=== PATIENT | male | born 1940 | race African-American/Black ===

== ENCOUNTER 2021-06-04 07:47 | Outpatient (CLI) | payer MEDICARE, MEDICAID | END 2021-06-04 07:48 | disposition home or self-care (01) | LOC: BICULT 07:47 | PROVIDERS: ATTEND Family Medicine | DX: Z12.2 Encounter for screening for malignant neoplasm of respiratory organs (principal); F17.210 Nicotine dependence, cigarettes, uncomplicated; Z13.6 Encounter for screening for cardiovascular disorders | CPT/HCPCS: 71271; 76775 ==

== ENCOUNTER 2022-03-21 11:00 | Outpatient (CLI) | payer MEDICARE, MEDICAID | END 2022-03-21 11:01 | disposition home or self-care (01) | LOC: PET 11:00 | PROVIDERS: ATTEND Psychiatry & Neurology Neurology | DX: G20 Parkinson's disease (principal); R41.3 Other amnesia; F03.91 Unspecified dementia, unspecified severity, with behavioral disturbance | CPT/HCPCS: 78803; A9552 ==

== ENCOUNTER 2022-10-22 13:06 | Observation (INO) | payer MEDICARE, MEDICAID ==
[~2022-10-22 13:06] MED LIST: Iopamidol 370 76% 100 ML VIAL ONE
[2022-10-22 14:23] LABS: #Basophils 0.1 thou/uL (0.0-0.2); #Eosinphils 0.2 thou/uL (0.0-0.7); #Lymphocytes 1.9 thou/uL (1.20-3.40); #Monocytes 0.5 thou/uL (0.11-0.59); #Neutrophils 2.4 thou/uL (1.40-6.50); %Basophils 1.4 % (0.0-1.0); %Eosinophils 4.5 % (0.0-10.0); %Lymphocytes 37.4 % (21.0-51.0); %Monocytes 9.1 % (0.0-10.0); %Neutrophils 47.6 % (42.0-75.0); Hemoglobin 13.7 g/dL (14.0-18.0); Mean Corpuscular HGB CONC 31.6 g/dL (32.0-36.0); Mean Corpuscular Hemoglobin 30.9 pg (27.0-31.0); Mean Corpuscular Volume 97.9 fl (78.0-98.0); Mean Platelet Volume 8.9 fL (7.4-10.4); Platelet Count 208 10x3/uL (130-400); RBC Distribution Width 12.2 % (11.5-14.5); Red Blood Cell (RBC) Count 4.43 mill/uL (4.70-6.10); White Blood Cell (WBC) Count 5.1 10x3/uL (4.8-10.8)
[2022-10-22] MEDS ORDERED: Aspirin Chewable 81 MG TAB ONE (14:43)
[2022-10-22] MEDS ORDERED: Ondansetron PF 4 MG/2 ML Vial IVP PRN (14:53)
[2022-10-22] MEDS ORDERED: Ondansetron ODT 4 MG TAB PO PRN (14:53)
[2022-10-22 16:09] LABS: ALT (SGPT) 11 U/L (8-55); AST (SGOT) 17 U/L (5-34); Alkaline Phosphatase 89 U/L (40-110); Anion Gap 11 mmol/L (10-20); BUN (Urea Nitrogen) 13 mg/dL (8.4-25.7); Bilirubin, Total 0.7 mg/dL (0.2-1.2); Calc. Creatinine Clearance 0 mL/min (70-130); Calcium 9.7 mg/dL (7.8-10.44); Carbon Dioxide 26 mmol/L (23-31); Chloride 107 mmol/L (98-107); Estimated GFR 92; Globulin 2.7 g/dL (2.4-3.5); Glucose 91 mg/dL (83-110); Potassium 4.4 mmol/L (3.5-5.1); Protein, Total 6.7 g/dL (5.8-8.1); Sodium 140 mmol/L (136-145)
[2022-10-22 18:00] VITALS: BMI 17.9
[2022-10-22] MEDS: Atorvastatin Calcium 40 MG TAB PO SCH (21:17)
[2022-10-23 05:09] LABS: #Eosinphils 0.3 thou/uL (0.0-0.7); #Lymphocytes 2.7 thou/uL (1.20-3.40); #Monocytes 0.5 thou/uL (0.11-0.59); #Neutrophils 2.2 thou/uL (1.40-6.50); %Basophils 0.8 % (0.0-1.0); %Eosinophils 5.6 % (0.0-10.0); %Lymphocytes 46.4 % (21.0-51.0); %Monocytes 8.5 % (0.0-10.0); %Neutrophils 38.7 % (42.0-75.0); Hemoglobin 13.6 g/dL (14.0-18.0); Mean Corpuscular HGB CONC 33.7 g/dL (32.0-36.0); Mean Corpuscular Hemoglobin 32.6 pg (27.0-31.0); Mean Corpuscular Volume 96.8 fl (78.0-98.0); Mean Platelet Volume 8.8 fL (7.4-10.4); Platelet Count 195 10x3/uL (130-400); RBC Distribution Width 11.9 % (11.5-14.5); Red Blood Cell (RBC) Count 4.18 mill/uL (4.70-6.10); White Blood Cell (WBC) Count 5.7 10x3/uL (4.8-10.8)
[2022-10-23] MEDS: Aspirin 81 mg Enteric Coated Tablet PO SCH (08:06)
[2022-10-23 09:43] LABS: Anion Gap 12 mmol/L (10-20); BUN (Urea Nitrogen) 15 mg/dL (8.4-25.7); Calc. Creatinine Clearance 61 mL/min (70-130); Calcium 9.4 mg/dL (7.8-10.44); Carbon Dioxide 25 mmol/L (23-31); Cardiac Risk 3.5 (Less than 4.5); Chloride 106 mmol/L (98-107); Cholesterol 159 mg/dl (< 200 Desired); Estimated GFR 89; Glucose 75 mg/dL (83-110); HDL Cholesterol 45 mg/dL (>60 Neg Risk); LDL Cholesterol, Calculated 95 mg/dL; Potassium 4.7 mmol/L (3.5-5.1); Sodium 138 mmol/L (136-145); Triglycerides 95 mg/dL (Less than 150)
[2022-10-23] MEDS: Carbidopa/Levodopa 25-100 mg Tablet PO SCH (20:52)
[2022-10-23] MEDS: Atorvastatin Calcium 40 MG TAB PO SCH (20:52)
[2022-10-24 06:21] LABS: #Basophils 0.1 thou/uL (0.0-0.2); #Eosinphils 0.2 thou/uL (0.0-0.7); #Lymphocytes 2.3 thou/uL (1.20-3.40); #Monocytes 0.4 thou/uL (0.11-0.59); #Neutrophils 2.2 thou/uL (1.40-6.50); %Basophils 0.9 % (0.0-1.0); %Eosinophils 4.5 % (0.0-10.0); %Lymphocytes 44.6 % (21.0-51.0); %Monocytes 7.4 % (0.0-10.0); %Neutrophils 42.5 % (42.0-75.0); Hemoglobin 13.1 g/dL (14.0-18.0); Mean Corpuscular HGB CONC 33.8 g/dL (32.0-36.0); Mean Corpuscular Hemoglobin 32.4 pg (27.0-31.0); Mean Corpuscular Volume 95.9 fl (78.0-98.0); Mean Platelet Volume 8.8 fL (7.4-10.4); Platelet Count 210 10x3/uL (130-400); RBC Distribution Width 11.8 % (11.5-14.5); Red Blood Cell (RBC) Count 4.04 mill/uL (4.70-6.10); White Blood Cell (WBC) Count 5.2 10x3/uL (4.8-10.8)
[2022-10-24 06:41] LABS: Anion Gap 11 mmol/L (10-20); BUN (Urea Nitrogen) 19 mg/dL (8.4-25.7); Calc. Creatinine Clearance 67 mL/min (70-130); Calcium 9.4 mg/dL (7.8-10.44); Carbon Dioxide 25 mmol/L (23-31); Chloride 105 mmol/L (98-107); Estimated GFR 91; Glucose 95 mg/dL (83-110); Potassium 4.1 mmol/L (3.5-5.1); Sodium 137 mmol/L (136-145)
[2022-10-24] MEDS: Carbidopa/Levodopa 25-100 mg Tablet PO SCH (08:23)
[2022-10-24] MEDS: Aspirin 81 mg Enteric Coated Tablet PO SCH (08:23)
[2022-10-24] MEDS ORDERED: Donepezil HCl 10 MG TAB PO SCH (09:00)
[2022-10-24 12:00] VITALS: BP 108/62; TEMP 97.7
== END 2022-10-24 15:08 | disposition home or self-care (01) ==
LOC: ERS 13:06 → ERHOLD 15:05 → NEURO 17:25
PROVIDERS: ADMIT Hospitalist; ATTEND Hospitalist
DX: R53.1 Weakness (principal); M21.331 Wrist drop, right wrist; I25.2 Old myocardial infarction; I25.10 Atherosclerotic heart disease of native coronary artery without angina pectoris; I11.0 Hypertensive heart disease with heart failure; I50.20 Unspecified systolic (congestive) heart failure; I08.3 Combined rheumatic disorders of mitral, aortic and tricuspid valves; E78.5 Hyperlipidemia, unspecified; G20 Parkinson's disease; G89.29 Other chronic pain; M54.9 Dorsalgia, unspecified; K74.60 Unspecified cirrhosis of liver; Z95.1 Presence of aortocoronary bypass graft; Z79.82 Long term (current) use of aspirin; Z79.899 Other long term (current) drug therapy; Z87.891 Personal history of nicotine dependence
CPT/HCPCS: 70450; 70496; 70498; 70551; 71045; 73080; 73100; 80048 ×2; 80053; 80061; 84484; 85025 ×3; 93005; 93306; 97112; 97530; 99285; G0378 ×4; 36415; Q9967

== ENCOUNTER 2022-10-31 15:03 | Emergency (ER) | payer MEDICARE, MEDICAID ==
[2022-10-31 16:30] LABS: #Eosinphils 0.2 thou/uL (0.0-0.7); #Lymphocytes 1.5 thou/uL (1.20-3.40); #Monocytes 0.7 thou/uL (0.11-0.59); #Neutrophils 4.7 thou/uL (1.40-6.50); %Basophils 0.6 % (0.0-1.0); %Eosinophils 2.2 % (0.0-10.0); %Lymphocytes 21.2 % (21.0-51.0); %Monocytes 9.3 % (0.0-10.0); %Neutrophils 66.7 % (42.0-75.0); Hemoglobin 13.6 g/dL (14.0-18.0); Mean Corpuscular HGB CONC 32.6 g/dL (32.0-36.0); Mean Corpuscular Hemoglobin 31.9 pg (27.0-31.0); Mean Corpuscular Volume 97.7 fl (78.0-98.0); Mean Platelet Volume 8.4 fL (7.4-10.4); Platelet Count 221 10x3/uL (130-400); RBC Distribution Width 11.9 % (11.5-14.5); Red Blood Cell (RBC) Count 4.26 mill/uL (4.70-6.10); White Blood Cell (WBC) Count 7.1 10x3/uL (4.8-10.8)
[2022-10-31 17:10] LABS: Bilirubin Negative (Negative); Blood, Urine Negative (Negative); Clarity Clear (Clear); Glucose, Urine (Dipstick) Normal (Negative); Ketone, Urine Negative (Negative); Leukocyte Negative Leu/uL (Negative); Nitrite Negative (Negative); Protein, Urine (Dipstick) Negative (Neg-Trace); Specific Gravity, Urine 1.018 (1.002-1.036)
[2022-10-31 17:59] LABS: ALT (SGPT) Less than 7 U/L (8-55); AST (SGOT) 16 U/L (5-34); Albumin 3.6 g/dL (3.4-4.8); Alkaline Phosphatase 76 U/L (40-110); Anion Gap 15 mmol/L (10-20); BUN (Urea Nitrogen) 21 mg/dL (8.4-25.7); Bilirubin, Total 0.5 mg/dL (0.2-1.2); CK (CPK) 142 U/L (30-200); Calc. Creatinine Clearance 0 mL/min (70-130); Carbon Dioxide 21 mmol/L (23-31); Chloride 110 mmol/L (98-107); Estimated GFR 90; Globulin 2.7 g/dL (2.4-3.5); Glucose 98 mg/dL (83-110); Potassium 4.3 mmol/L (3.5-5.1); Protein, Total 6.3 g/dL (5.8-8.1); Sodium 142 mmol/L (136-145)
== END 2022-10-31 21:49 ==
LOC: ERS 15:03
DX: E86.0 Dehydration (principal); E86.1 Hypovolemia; I10 Essential (primary) hypertension; I25.10 Atherosclerotic heart disease of native coronary artery without angina pectoris
CPT/HCPCS: 36415; 51701; 70450; 71045; 80053; 81003; 82550; 83605; 84443; 84484; 85025; 93005; 96360

== ENCOUNTER 2023-03-20 23:03 | Inpatient (IN) | payer MEDICARE, MEDICAID ==
[2023-03-20] MEDS ORDERED: cefTRIAXone (ROCEPHIN) 2 GM VIAL ONE (23:55)
[2023-03-21 00:02] LABS: Bacteria/HPF 3+ HPF (None Seen); Bilirubin Negative (Negative); Blood, Urine 1+ (Negative); CAUTI Indications for Culture Alt mental st,lethar; Clarity Clear (Clear); Glucose, Urine (Dipstick) Normal (Negative); Ketone, Urine Negative (Negative); Leukocyte 25 Leu/uL (Negative); Mucous/LPF Rare LPF (<2+); Nitrite Negative (Negative); Protein, Urine (Dipstick) 10 mg/dL (Neg-Trace); Specific Gravity, Urine 1.024 (1.002-1.036); Squamous Epithelial None Seen HPF (0-3)
[2023-03-21 00:03] LABS: Urine Culture Reflex No No
[2023-03-21 00:06] LABS: Amphetamine Not Detected (NotDetected); Barbiturates Screen Not Detected (NotDetected); Benzodiazepine Screen Not Detected (NotDetected); Cocaine Metabolite Screen Not Detected (NotDetected); Methadone Not Detected (NotDetected); Methamphetamine Not Detected (NotDetected); Opiate Screen Detected (NotDetected); Oxycodone Screen Not Detected (NotDetected); Phencyclidine (PCP) Not Detected (NotDetected); THC/Cannabinoid Screen Not Detected (NotDetected); Tricyclic Screen Detected (NotDetected)
[2023-03-21 00:20] LABS: #Basophils 0.1 thou/uL (0.0-0.2); #Monocytes 0.5 thou/uL (0.11-0.59); #Neutrophils 4.5 thou/uL (1.40-6.50); %Basophils 0.8 % (0.0-1.0); %Lymphocytes 19.7 % (21.0-51.0); %Monocytes 8.5 % (0.0-10.0); %Neutrophils 70.7 % (42.0-75.0); Hematocrit 35.1 % (42.0-52.0); Hemoglobin 11.5 g/dL (14.0-18.0); Mean Corpuscular HGB CONC 32.8 g/dL (32.0-36.0); Mean Corpuscular Hemoglobin 30.7 pg (27.0-31.0); Mean Corpuscular Volume 93.9 fl (78.0-98.0); Mean Platelet Volume 10.5 fL (7.4-10.4); Platelet Count 204 10x3/uL (130-400); RBC Distribution Width 13.3 % (11.5-14.5); Red Blood Cell (RBC) Count 3.74 mill/uL (4.70-6.10); White Blood Cell (WBC) Count 6.4 10x3/uL (4.8-10.8)
[2023-03-21 00:38] LABS: Acetaminophen Less than 10 mcg/mL (10.0-30.0); Alcohol Less than 10.0 mg/dL (Less than 10); Salicylate Less than 8.0 mg/dL (15.0-30.0)
[2023-03-21 00:38] LABS: ALT (SGPT) 12 U/L (8-55); AST (SGOT) 44 U/L (5-34); Albumin 3.6 g/dL (3.4-4.8); Alkaline Phosphatase 77 U/L (40-110); Anion Gap 15 mmol/L (10-20); BUN (Urea Nitrogen) 24 mg/dL (8.4-25.7); Bilirubin, Total 0.7 mg/dL (0.2-1.2); CK (CPK) 1464 U/L (30-200); Calc. Creatinine Clearance 0 mL/min (70-130); Carbon Dioxide 23 mmol/L (23-31); Chloride 105 mmol/L (98-107); Estimated GFR 83; Globulin 2.9 g/dL (2.4-3.5); Glucose 108 mg/dL (83-110); Lipase 11 U/L (8-78); Potassium 4.5 mmol/L (3.5-5.1); Protein, Total 6.5 g/dL (5.8-8.1); Sodium 138 mmol/L (136-145)
[2023-03-21 00:46] LABS: Troponin I 0.038 ng/mL (< 0.028)
[2023-03-21 00:52] LABS: SARS-CoV-2 NAA Rapid Test DETECTED (NotDetected)
[2023-03-21] MEDS ORDERED: Ondansetron ODT 4 MG TAB PO PRN (01:37)
[2023-03-21] MEDS ORDERED: Senokot S 8.6-50 MG TAB PO PRN (01:37)
[2023-03-21] MEDS ORDERED: Calcium Carbonate 500 MG ChewTAB PO PRN (01:37)
[2023-03-21] MEDS ORDERED: D5 1/2 NS w/20 mEq KCL 1,000 ML IV SCH (01:45)
[2023-03-21 03:03] VITALS: BMI 18.1
[2023-03-21] MEDS ORDERED: REMDESIVIR 200 MG in Sodium Chloride 0.9% 250 ML 210 ML IV SCH (04:00)
[2023-03-21 06:43] LABS: #Monocytes 0.4 thou/uL (0.11-0.59); #Neutrophils 2.6 thou/uL (1.40-6.50); %Basophils 0.8 % (0.0-1.0); %Eosinophils 0.4 % (0.0-10.0); %Monocytes 8.6 % (0.0-10.0); %Neutrophils 53.2 % (42.0-75.0); Hematocrit 32.2 % (42.0-52.0); Hemoglobin 10.3 g/dL (14.0-18.0); Mean Corpuscular Hemoglobin 30.1 pg (27.0-31.0); Mean Corpuscular Volume 94.2 fl (78.0-98.0); Mean Platelet Volume 10.5 fL (7.4-10.4); Platelet Count 177 10x3/uL (130-400); RBC Distribution Width 13.5 % (11.5-14.5); Red Blood Cell (RBC) Count 3.42 mill/uL (4.70-6.10); White Blood Cell (WBC) Count 4.8 10x3/uL (4.8-10.8)
[2023-03-21 06:55] LABS: Anion Gap 11 mmol/L (10-20); BUN (Urea Nitrogen) 20 mg/dL (8.4-25.7); Calc. Creatinine Clearance 68 mL/min (70-130); Calcium 8.1 mg/dL (7.8-10.44); Carbon Dioxide 23 mmol/L (23-31); Chloride 111 mmol/L (98-107); Estimated GFR 92; Glucose 104 mg/dL (83-110); Potassium 3.6 mmol/L (3.5-5.1); Sodium 141 mmol/L (136-145)
[2023-03-21 07:02] LABS: Troponin I 0.055 ng/mL (< 0.028)
[2023-03-21 07:13] LABS: Troponin I 0.038 ng/mL (< 0.028)
[2023-03-21] MEDS: Famotidine 20 MG TAB PO SCH ×2 (09:25→21:28)
[2023-03-21] MEDS: QUEtiapine 25 MG TAB PO SCH ×2 (09:25→21:27)
[2023-03-21] MEDS: Carbidopa/Levodopa 25-100 mg Tablet PO SCH ×2 (09:25→21:28)
[2023-03-21] MEDS: Midodrine HCl 5 MG TAB PO SCH ×3 (09:25→21:27)
[2023-03-21] MEDS: Acetaminophen 325 MG TAB PO PRN ×2 (14:49→21:28)
[2023-03-21] MEDS: Donepezil HCl 10 MG TAB PO SCH (21:27)
[2023-03-21] MEDS: cefTRIAXone\\ROCEPHIN 1 GM in Sodium Chloride 0.9% 100 ML IVPB SCH (23:25)
[2023-03-22 08:35] LABS: #Eosinphils 0.1 thou/uL (0.0-0.7); #Monocytes 0.4 thou/uL (0.11-0.59); %Basophils 0.8 % (0.0-1.0); %Eosinophils 2.4 % (0.0-10.0); %Lymphocytes 33.6 % (21.0-51.0); %Monocytes 10.3 % (0.0-10.0); %Neutrophils 52.9 % (42.0-75.0); Hematocrit 38.9 % (42.0-52.0); Hemoglobin 12.1 g/dL (14.0-18.0); Mean Corpuscular HGB CONC 31.1 g/dL (32.0-36.0); Mean Corpuscular Hemoglobin 30.4 pg (27.0-31.0); Mean Corpuscular Volume 97.7 fl (78.0-98.0); Mean Platelet Volume 10.8 fL (7.4-10.4); Platelet Count 175 10x3/uL (130-400); RBC Distribution Width 13.4 % (11.5-14.5); Red Blood Cell (RBC) Count 3.98 mill/uL (4.70-6.10); White Blood Cell (WBC) Count 3.8 10x3/uL (4.8-10.8)
[2023-03-22] MEDS ORDERED: Dexamethasone 6 MG in Sodium Chloride 0.9% 50 ML IVPB SCH (09:00)
[2023-03-22] MEDS: Midodrine HCl 5 MG TAB PO SCH ×3 (09:05→20:44)
[2023-03-22] MEDS: Carbidopa/Levodopa 25-100 mg Tablet PO SCH ×2 (09:05→23:00)
[2023-03-22] MEDS: REMDESIVIR 100 MG in Sodium Chloride 0.9% 250 ML 230 ML IV SCH (09:05)
[2023-03-22] MEDS: Famotidine 20 MG TAB PO SCH ×2 (09:05→20:43)
[2023-03-22] MEDS: QUEtiapine 25 MG TAB PO SCH ×2 (09:05→20:44)
[2023-03-22] MEDS: Dexamethasone 4 mg/ml Vial SLOW IVP SCH (09:05)
[2023-03-22] MEDS: Donepezil HCl 10 MG TAB PO SCH (20:43)
[2023-03-23] MEDS: cefTRIAXone\\ROCEPHIN 1 GM in Sodium Chloride 0.9% 100 ML IVPB SCH ×2 (00:51→23:15)
[2023-03-23 07:40] LABS: #Monocytes 0.5 thou/uL (0.11-0.59); #Neutrophils 3.8 thou/uL (1.40-6.50); %Basophils 0.3 % (0.0-1.0); %Eosinophils 0.2 % (0.0-10.0); %Lymphocytes 29.7 % (21.0-51.0); %Monocytes 8.6 % (0.0-10.0); Hematocrit 38.5 % (42.0-52.0); Mean Corpuscular HGB CONC 31.2 g/dL (32.0-36.0); Mean Corpuscular Hemoglobin 30.5 pg (27.0-31.0); Mean Corpuscular Volume 97.7 fl (78.0-98.0); Mean Platelet Volume 10.5 fL (7.4-10.4); Platelet Count 222 10x3/uL (130-400); RBC Distribution Width 13.2 % (11.5-14.5); Red Blood Cell (RBC) Count 3.94 mill/uL (4.70-6.10); White Blood Cell (WBC) Count 6.3 10x3/uL (4.8-10.8)
[2023-03-23] MEDS: QUEtiapine 25 MG TAB PO SCH ×2 (09:03→20:31)
[2023-03-23] MEDS: Dexamethasone 4 mg/ml Vial SLOW IVP SCH (09:03)
[2023-03-23] MEDS: Midodrine HCl 5 MG TAB PO SCH ×3 (09:03→20:31)
[2023-03-23] MEDS: Famotidine 20 MG TAB PO SCH ×2 (09:03→20:31)
[2023-03-23] MEDS: Carbidopa/Levodopa 25-100 mg Tablet PO SCH ×2 (09:06→20:31)
[2023-03-23] MEDS: REMDESIVIR 100 MG in Sodium Chloride 0.9% 250 ML 230 ML IV SCH (09:06)
[2023-03-23] MEDS: Donepezil HCl 10 MG TAB PO SCH (20:31)
[2023-03-24] MEDS: Dexamethasone 4 mg/ml Vial SLOW IVP SCH (08:56)
[2023-03-24] MEDS: Carbidopa/Levodopa 25-100 mg Tablet PO SCH ×2 (08:56→21:29)
[2023-03-24] MEDS: REMDESIVIR 100 MG in Sodium Chloride 0.9% 250 ML 230 ML IV SCH (08:57)
[2023-03-24] MEDS: Midodrine HCl 5 MG TAB PO SCH ×3 (08:57→21:29)
[2023-03-24] MEDS: Famotidine 20 MG TAB PO SCH ×2 (08:57→21:29)
[2023-03-24] MEDS: QUEtiapine 25 MG TAB PO SCH ×2 (08:57→21:29)
[2023-03-24] MEDS: Donepezil HCl 10 MG TAB PO SCH (21:29)
[2023-03-25] MEDS: cefTRIAXone\\ROCEPHIN 1 GM in Sodium Chloride 0.9% 100 ML IVPB SCH ×2 (00:06→23:53)
[2023-03-25] MEDS: REMDESIVIR 100 MG in Sodium Chloride 0.9% 250 ML 230 ML IV SCH (09:30)
[2023-03-25] MEDS: Dexamethasone 4 mg/ml Vial SLOW IVP SCH (09:31)
[2023-03-25] MEDS: QUEtiapine 25 MG TAB PO SCH ×2 (09:31→20:46)
[2023-03-25] MEDS: Carbidopa/Levodopa 25-100 mg Tablet PO SCH ×2 (09:31→20:47)
[2023-03-25] MEDS: Famotidine 20 MG TAB PO SCH ×2 (09:31→20:46)
[2023-03-25] MEDS: Midodrine HCl 5 MG TAB PO SCH ×4 (09:31→20:50)
[2023-03-25] MEDS: Donepezil HCl 10 MG TAB PO SCH (20:46)
[2023-03-26] MEDS: Dexamethasone 4 mg/ml Vial SLOW IVP SCH (09:12)
[2023-03-26] MEDS: Famotidine 20 MG TAB PO SCH ×2 (09:13→20:07)
[2023-03-26] MEDS: QUEtiapine 25 MG TAB PO SCH ×2 (09:13→20:08)
[2023-03-26] MEDS: Midodrine HCl 5 MG TAB PO SCH ×3 (09:13→20:07)
[2023-03-26] MEDS: Carbidopa/Levodopa 25-100 mg Tablet PO SCH ×2 (09:14→20:07)
[2023-03-26] MEDS: Donepezil HCl 10 MG TAB PO SCH (20:07)
[2023-03-27] MEDS: cefTRIAXone\\ROCEPHIN 1 GM in Sodium Chloride 0.9% 100 ML IVPB SCH (00:22)
[2023-03-27] MEDS: Famotidine 20 MG TAB PO SCH ×2 (08:39→23:04)
[2023-03-27] MEDS: Midodrine HCl 5 MG TAB PO SCH ×3 (08:39→23:04)
[2023-03-27] MEDS: Dexamethasone 4 MG TAB PO SCH (08:39)
[2023-03-27] MEDS: QUEtiapine 25 MG TAB PO SCH ×2 (08:39→23:04)
[2023-03-27] MEDS: Carbidopa/Levodopa 25-100 mg Tablet PO SCH ×2 (08:39→23:04)
[2023-03-27] MEDS: Donepezil HCl 10 MG TAB PO SCH (23:04)
[2023-03-28] MEDS: Dexamethasone 4 MG TAB PO SCH (08:37)
[2023-03-28] MEDS: QUEtiapine 25 MG TAB PO SCH ×2 (08:37→20:22)
[2023-03-28] MEDS: Famotidine 20 MG TAB PO SCH ×2 (08:37→20:22)
[2023-03-28] MEDS: Midodrine HCl 5 MG TAB PO SCH ×3 (08:37→20:22)
[2023-03-28] MEDS: Carbidopa/Levodopa 25-100 mg Tablet PO SCH ×2 (08:40→20:21)
[2023-03-28] MEDS: Donepezil HCl 10 MG TAB PO SCH (20:22)
[2023-03-29] MEDS: Carbidopa/Levodopa 25-100 mg Tablet PO SCH ×2 (08:18→21:42)
[2023-03-29] MEDS: Dexamethasone 4 MG TAB PO SCH (08:18)
[2023-03-29] MEDS: Midodrine HCl 5 MG TAB PO SCH ×3 (08:18→21:42)
[2023-03-29] MEDS: Famotidine 20 MG TAB PO SCH ×2 (08:19→21:42)
[2023-03-29] MEDS: QUEtiapine 25 MG TAB PO SCH ×2 (08:19→21:42)
[2023-03-29] MEDS: Donepezil HCl 10 MG TAB PO SCH (21:42)
[2023-03-30 06:30] LABS: Hematocrit 42.2 % (42.0-52.0); Hemoglobin 13.3 g/dL (14.0-18.0); Platelet Count 355 10x3/uL (130-400)
[2023-03-30] MEDS: Famotidine 20 MG TAB PO SCH ×2 (08:52→20:58)
[2023-03-30] MEDS: Carbidopa/Levodopa 25-100 mg Tablet PO SCH ×2 (08:52→20:57)
[2023-03-30] MEDS: QUEtiapine 25 MG TAB PO SCH ×2 (08:52→20:57)
[2023-03-30] MEDS: Dexamethasone 4 MG TAB PO SCH (08:52)
[2023-03-30] MEDS: Midodrine HCl 5 MG TAB PO SCH ×3 (08:52→20:58)
[2023-03-30] MEDS: Donepezil HCl 10 MG TAB PO SCH (20:58)
[2023-03-31] MEDS: Dexamethasone 4 MG TAB PO SCH (08:40)
[2023-03-31] MEDS: Famotidine 20 MG TAB PO SCH (08:40)
[2023-03-31] MEDS: QUEtiapine 25 MG TAB PO SCH (08:40)
[2023-03-31] MEDS: Midodrine HCl 5 MG TAB PO SCH (08:40)
[2023-03-31] MEDS: Carbidopa/Levodopa 25-100 mg Tablet PO SCH (08:43)
[2023-03-31 09:33] VITALS: TEMP 97.9
[2023-03-31 11:50] VITALS: BP 110/70
== END 2023-03-31 14:38 | disposition home or self-care (01) | DRG 177 ==
LOC: ERS 23:03 → T4-A 03-21 01:32
PROVIDERS: ADMIT Student in an Organized Health Care Education/Training Program; ATTEND Internal Medicine
PROC: XW033E5 Introduction of Remdesivir Anti-infective into Peripheral Vein, Percutaneous Approach, New Technology Group 5 (ICD-10-PCS; principal; 2023-03-21)
PROC: 3E0DX3Z Introduction of Anti-inflammatory into Mouth and Pharynx, External Approach (ICD-10-PCS; 2023-03-27)
DX: U07.1 COVID-19 (principal); J12.82 Pneumonia due to coronavirus disease 2019; J96.01 Acute respiratory failure with hypoxia; M62.82 Rhabdomyolysis; N39.0 Urinary tract infection, site not specified; Z68.1 Body mass index [BMI] 19.9 or less, adult; I50.32 Chronic diastolic (congestive) heart failure; I11.0 Hypertensive heart disease with heart failure; G20 Parkinson's disease; I25.10 Atherosclerotic heart disease of native coronary artery without angina pectoris; K74.60 Unspecified cirrhosis of liver; M54.9 Dorsalgia, unspecified; G89.29 Other chronic pain; Z95.1 Presence of aortocoronary bypass graft; R62.7 Adult failure to thrive; F03.90 Unspecified dementia, unspecified severity, without behavioral disturbance, psychotic disturbance, mood disturbance, and anxiety; G47.33 Obstructive sleep apnea (adult) (pediatric); Z79.899 Other long term (current) drug therapy; R53.81 Other malaise; E78.5 Hyperlipidemia, unspecified
CPT/HCPCS: 36415; 36416; 51701; 71045; 80053; 80306; 80307; 81001; 82140; 82550; 82565; 83690; 83880; 84484; 85014; 85018; 85025; 85049; 87040; 93005; 96361; 96365; J0248; J0696; J1100; J1650; J3480; J3490; J7050; J8540; U0002

== ENCOUNTER 2023-04-13 08:03 | Inpatient (IN) | payer MEDICARE, MEDICAID ==
[2023-04-13] MEDS ORDERED: Acetaminophen 500 MG TAB ONE (08:40)
[2023-04-13] MEDS ORDERED: Ketorolac Tromethamine 30 MG/ML VIAL ONE (10:04)
[2023-04-13 10:36] LABS: #Eosinphils 0.1 thou/uL (0.0-0.7); #Monocytes 0.5 thou/uL (0.11-0.59); #Neutrophils 5.1 thou/uL (1.40-6.50); %Basophils 0.4 % (0.0-1.0); %Eosinophils 1.5 % (0.0-10.0); %Monocytes 6.7 % (0.0-10.0); Hematocrit 44.9 % (42.0-52.0); Hemoglobin 14.2 g/dL (14.0-18.0); Mean Corpuscular HGB CONC 31.6 g/dL (32.0-36.0); Mean Corpuscular Hemoglobin 30.4 pg (27.0-31.0); Mean Corpuscular Volume 96.1 fl (78.0-98.0); Mean Platelet Volume 9.4 fL (7.4-10.4); Platelet Count 202 10x3/uL (130-400); RBC Distribution Width 13.3 % (11.5-14.5); Red Blood Cell (RBC) Count 4.67 mill/uL (4.70-6.10); White Blood Cell (WBC) Count 7.5 10x3/uL (4.8-10.8)
[2023-04-13 10:58] LABS: ALT (SGPT) 50 U/L (8-55); AST (SGOT) 114 U/L (5-34); Albumin 3.9 g/dL (3.4-4.8); Alkaline Phosphatase 103 U/L (40-110); Anion Gap 11 mmol/L (10-20); BUN (Urea Nitrogen) 20 mg/dL (8.4-25.7); Calc. Creatinine Clearance 0 mL/min (70-130); Calcium 9.7 mg/dL (7.8-10.44); Carbon Dioxide 31 mmol/L (23-31); Chloride 109 mmol/L (98-107); Estimated GFR 81; Globulin 3.4 g/dL (2.4-3.5); Glucose 118 mg/dL (83-110); Potassium 4.3 mmol/L (3.5-5.1); Protein, Total 7.3 g/dL (5.8-8.1); Sodium 147 mmol/L (136-145)
[2023-04-13 12:14] LABS: Bacteria/HPF None Seen HPF (None Seen); Bilirubin Negative (Negative); Blood, Urine Negative (Negative); CAUTI Indications for Culture Alt mental st,lethar; Clarity Clear (Clear); Glucose, Urine (Dipstick) Normal (Negative); Ketone, Urine Negative (Negative); Leukocyte Negative Leu/uL (Negative); Nitrite Negative (Negative); Protein, Urine (Dipstick) Negative (Neg-Trace); RBC/HPF 0-3 HPF (0-3); Specific Gravity, Urine 1.024 (1.002-1.036); Squamous Epithelial 0-3 HPF (0-3); WBC/HPF 0-3 HPF (0-3)
[2023-04-13 12:18] LABS: Urine Culture Reflex No No
[2023-04-13] MEDS ORDERED: Ondansetron PF 4 MG/2 ML Vial IVP PRN (13:01)
[2023-04-13] MEDS ORDERED: Acetaminophen 650 MG Suppository PR PRN (13:01)
[2023-04-13 16:07] VITALS: BMI 15.4
[2023-04-13] MEDS: Sodium Chloride 0.9% 1,000 ML IV SCH (17:00)
[2023-04-13] MEDS ORDERED: Famotidine/PF 20 mg/2ml Vial SLOW IVP SCH (21:00)
[2023-04-14] MEDS: Sodium Chloride 0.9% 1,000 ML IV SCH ×3 (02:49→19:15)
[2023-04-14 07:29] LABS: #Basophils 0.1 thou/uL (0.0-0.2); #Eosinphils 0.2 thou/uL (0.0-0.7); #Monocytes 0.4 thou/uL (0.11-0.59); #Neutrophils 3.9 thou/uL (1.40-6.50); %Basophils 0.8 % (0.0-1.0); %Eosinophils 3.6 % (0.0-10.0); %Lymphocytes 26.1 % (21.0-51.0); %Monocytes 6.8 % (0.0-10.0); %Neutrophils 62.4 % (42.0-75.0); Hemoglobin 11.7 g/dL (14.0-18.0); Mean Corpuscular HGB CONC 31.6 g/dL (32.0-36.0); Mean Corpuscular Hemoglobin 30.8 pg (27.0-31.0); Mean Corpuscular Volume 97.4 fl (78.0-98.0); Mean Platelet Volume 9.7 fL (7.4-10.4); Platelet Count 207 10x3/uL (130-400); RBC Distribution Width 13.2 % (11.5-14.5); White Blood Cell (WBC) Count 6.2 10x3/uL (4.8-10.8)
[2023-04-14 07:56] LABS: ALT (SGPT) 48 U/L (8-55); AST (SGOT) 78 U/L (5-34); Albumin 3.3 g/dL (3.4-4.8); Alkaline Phosphatase 80 U/L (40-110); Anion Gap 11 mmol/L (10-20); BUN (Urea Nitrogen) 20 mg/dL (8.4-25.7); Bilirubin, Total 0.7 mg/dL (0.2-1.2); Calc. Creatinine Clearance 58 mL/min (70-130); Calcium 9.1 mg/dL (7.8-10.44); Carbon Dioxide 28 mmol/L (23-31); Chloride 110 mmol/L (98-107); Estimated GFR 90; Globulin 3.2 g/dL (2.4-3.5); Glucose 79 mg/dL (83-110); Potassium 3.9 mmol/L (3.5-5.1); Protein, Total 6.5 g/dL (5.8-8.1); Sodium 145 mmol/L (136-145)
[2023-04-14] MEDS ORDERED: Pantoprazole 40 MG VIAL IVP SCH (09:00)
[2023-04-14] MEDS ORDERED: HYDROcodone/Acetaminophen 5/325 mg Tablet PO PRN (10:06)
[2023-04-14] MEDS ORDERED: Midodrine HCl 5 MG TAB PO SCH (12:00)
[2023-04-14] MEDS: Midodrine HCl 5 MG TAB PO SCH ×2 (12:55→17:36)
[2023-04-14] MEDS ORDERED: Non-Formulary Item 1 EACH (Quetiapine Fumarate [Seroquel] 50 MG Tablet) PO SCH (21:00)
[2023-04-14] MEDS ORDERED: DONEPEZIL HCL 23 MG PO SCH (21:00)
[2023-04-14] MEDS: Carbidopa/Levodopa 25-100 mg Tablet PO SCH (21:16)
[2023-04-14] MEDS: QUEtiapine 25 MG TAB PO SCH (21:17)
[2023-04-14] MEDS: Donepezil HCl 10 MG TAB PO SCH (21:17)
[2023-04-15] MEDS: Sodium Chloride 0.9% 1,000 ML IV SCH ×3 (05:24→22:57)
[2023-04-15] MEDS: QUEtiapine 25 MG TAB PO SCH ×2 (10:11→20:53)
[2023-04-15] MEDS: Midodrine HCl 5 MG TAB PO SCH ×3 (10:11→17:17)
[2023-04-15] MEDS: Carbidopa/Levodopa 25-100 mg Tablet PO SCH ×2 (10:11→20:54)
[2023-04-15] MEDS: Donepezil HCl 10 MG TAB PO SCH (20:54)
[2023-04-16 07:52] VITALS: TEMP 98
[2023-04-16] MEDS: Carbidopa/Levodopa 25-100 mg Tablet PO SCH (09:39)
[2023-04-16] MEDS: QUEtiapine 25 MG TAB PO SCH (09:39)
[2023-04-16] MEDS: Midodrine HCl 5 MG TAB PO SCH ×2 (09:39→12:08)
[2023-04-16 11:56] VITALS: BP 113/67
== END 2023-04-16 15:40 | DRG 641 ==
LOC: ERS 08:03 → T4-B 12:48
PROVIDERS: ADMIT Internal Medicine; ATTEND Family Medicine
DX: E86.9 Volume depletion, unspecified (principal); E44.0 Moderate protein-calorie malnutrition; Z68.1 Body mass index [BMI] 19.9 or less, adult; G20 Parkinson's disease; I10 Essential (primary) hypertension; E87.0 Hyperosmolality and hypernatremia; K74.60 Unspecified cirrhosis of liver; I25.10 Atherosclerotic heart disease of native coronary artery without angina pectoris; M25.552 Pain in left hip; W19.XXXA Unspecified fall, initial encounter; Y92.9 Unspecified place or not applicable; Z79.899 Other long term (current) drug therapy; I25.2 Old myocardial infarction; Z95.1 Presence of aortocoronary bypass graft; Z86.16 Personal history of COVID-19; Z91.81 History of falling
CPT/HCPCS: 36415; 51701; 71045; 80053; 81001; 82140; 85025; 96360; 96372; 97139; C9113; J1650; J1885; J7050

== ENCOUNTER 2024-08-09 08:03 | Outpatient (CLI) | payer MEDICARE, MEDICAID | END 2024-08-09 08:04 | disposition home or self-care (01) | LOC: NM 08:03 | PROVIDERS: ATTEND Psychiatry & Neurology Neurology | DX: G20.C Parkinsonism, unspecified (principal) | CPT/HCPCS: 78803; A9584 ×2 ==